=== PATIENT | male | born 1960 | race Hispanic/Latino ===

== ENCOUNTER → 2018-01-28 | Outpatient (CLI) | payer OTHER ==
--- NOTE | 2018-01-28 18:48 | Diagnostic Imaging Report ---
Exam: Lumbar spine MRI without IV contrast History: Sciatica, right-sided HNP Comparison studies: None Technique: Sagittal and axial T2 , sagittal T1 and IR, axial spin density oblique. Intravenous contrast: None Findings: Number of lumbar vertebral bodies: 5. Alignment: Normal lordosis. No scoliosis. Soft tissues: No T2 hyperintense inflammatory changes. Paraspinal muscles: No signal abnormalities. Well-preserved. No atrophic changes Lower thoracic cord: Normal in signal and morphology. The tip of the conus is at T12-L1. Cauda equina: No masses. No arachnoiditis. Vertebrae: No compression fractures, infection or neoplasm. Degenerative changes: Multiple scattered endplate Schmorl's nodes from inferior T10 to superior L3. Canal is congenitally narrowed by short pedicles. T11-T12: Mildly degenerated disc with loss of disc height and T2 disc signal. Patent canal and foramina. L1-L2: Loss of T2 disc signal. Disc bulge and ligamentum flavum result in mild canal stenosis superimposed on congenital canal narrowing. No significant foraminal stenosis. L2-L3: Loss of T2 disc signal. Symmetric disc bulge, thickened ligamentum flavum with mild degenerative canal stenosis superimposed on congenital canal narrowing. No significant foraminal stenosis. L3-L4: Loss of T2 disc signal. Disc bulge, thickened ligamentum flavum and bilateral facet arthrosis with mild canal stenosis superimposed on congenital canal narrowing and mild bilateral foraminal stenosis. L4-L5: Loss of T2 disc signal. Disc bulge slightly asymmetric to the left, thickened ligamentum flavum and mild facet arthrosis with mild canal stenosis and moderate left and mild right foraminal stenosis. L5-S1: No abnormalities IMPRESSION: 1. Mild multilevel disc degeneration with associated disc bulges without focal disc herniation. 2. 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 3. Foraminal stenosis; moderate left and mild right at L4-L5 and mild bilaterally at L3-L4. Signed by: Dr. Himanshu Rojas M.D. on 01/28/2018 6:45 PM
== END ==
LOC: MRI 08:44
PROVIDERS: ATTEND Family Medicine
DX: M54.31 Sciatica, right side (principal); M54.16 Radiculopathy, lumbar region; M51.26 Other intervertebral disc displacement, lumbar region
CPT/HCPCS: 72148

== ENCOUNTER → 2020-09-03 | Outpatient (CLI) | payer OTHER ==
[~2020-09-03] MED LIST: COVID-19 VACC, MRNA(MODERNA)/PF 100 MCG/0.5 ML VIAL IM ONE
== END | disposition home or self-care (01) ==
LOC: VACCPMC 15:16
DX: Z23 Encounter for immunization (principal); Z20.822 Contact with and (suspected) exposure to COVID-19
CPT/HCPCS: 0011A; 91301

== ENCOUNTER → 2020-10-01 | Outpatient (CLI) | payer OTHER | END | disposition home or self-care (01) | LOC: VACCPMC 12:48 | DX: Z23 Encounter for immunization (principal); Z20.822 Contact with and (suspected) exposure to COVID-19 | CPT/HCPCS: 91301 ==